=== PATIENT | male | born 1970 | race Asian ===

== ENCOUNTER 2016-12-04 18:52 | Emergency (ER) | payer BC ==
[~2016-12-04] VITALS: Ht 167.6 cm; Wt 106.6 kg
[2016-12-04 20:29] VITALS: BP 135/81; TEMP 98.1
== END 2016-12-04 20:30 | disposition home or self-care (01) ==
LOC: ED 18:52
DX: S90.31XA Contusion of right foot, initial encounter (principal); V09.20XA Pedestrian injured in traffic accident involving unspecified motor vehicles, initial encounter; Y93.89 Activity, other specified; Y92.89 Other specified places as the place of occurrence of the external cause; Y99.8 Other external cause status
CPT/HCPCS: 96372; 99283; J1885

== ENCOUNTER 2020-08-21 08:06 | Emergency (ER) | payer BC | END 2020-08-21 09:01 | disposition home or self-care (01) | LOC: ED 08:06 | DX: T65.6X1A Toxic effect of paints and dyes, not elsewhere classified, accidental (unintentional), initial encounter (principal); L23.4 Allergic contact dermatitis due to dyes; Y92.89 Other specified places as the place of occurrence of the external cause; X58.XXXA Exposure to other specified factors, initial encounter; Y93.89 Activity, other specified | CPT/HCPCS: 96372; 99282; J2930 ==

== ENCOUNTER 2020-08-30 17:33 | Emergency (ER) | payer BC ==
[~2020-08-30] VITALS: Ht 167.6 cm; Wt 90.7 kg
[2020-08-30 19:15] VITALS: BP 132/88; TEMP 98.4
== END 2020-08-30 19:18 | disposition home or self-care (01) ==
LOC: ED 17:33
DX: S40.861A Insect bite (nonvenomous) of right upper arm, initial encounter (principal); S30.862A Insect bite (nonvenomous) of penis, initial encounter; W57.XXXA Bitten or stung by nonvenomous insect and other nonvenomous arthropods, initial encounter; Y92.89 Other specified places as the place of occurrence of the external cause
CPT/HCPCS: 99282; 99283

== ENCOUNTER 2021-08-22 08:56 | Outpatient (CLI) | payer BC | END 2021-08-22 20:34 | disposition home or self-care (01) | LOC: US 08:56 | PROVIDERS: ATTEND Internal Medicine | DX: R74.01 Elevation of levels of liver transaminase levels (principal); I10 Essential (primary) hypertension ==